=== PATIENT | female | born 1990 | race Two or more races ===

== ENCOUNTER 2017-08-17 23:46 | Emergency (ER) | payer OTHER ==
[2017-08-17 23:55] VITALS: TEMP 97.7
[2017-08-18] MEDS ORDERED: NS 1,000 ML IV ONE (00:46)
[2017-08-18] MEDS ORDERED: HYDROmorphONE/DILAUDID 1 MG/ML INJ IVP ONE (00:47)
[2017-08-18] MEDS ORDERED: PROMETHAZINE HCL 25 MG/ML INJ IVP ONE (00:47)
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
[2017-08-18 01:07] LABS: PLATELET COUNT 294 10^3/uL (150-400)
[2017-08-18 01:48] VITALS: BP 111/75; PULSE 77; RESP 16; O2SAT 94
== END 2017-08-18 02:03 | disposition home or self-care (01) ==
PROC: 3E0337Z Introduction of Electrolytic and Water Balance Substance into Peripheral Vein, Percutaneous Approach (ICD-10-PCS; principal; 2017-08-17)
DX: G43.909 Migraine, unspecified, not intractable, without status migrainosus (principal)
CPT/HCPCS: 96374; J1170; J1200; J2550